=== PATIENT | male | born 1955 | race Caucasian/White ===

== ENCOUNTER → 2016-09-07 | Outpatient (CLI) | payer OTHER ==
--- NOTE | 2016-09-07 14:05 | REP ---
LUMBAR SPINE, SIX VIEWS: HISTORY: Back pain. COMPARISON: 01/14/2010 There is no acute fracture or subluxation. The intervertebral discs are decreased in height consistent with disc degeneration. Osteophytes are present on L1 through L5. There is narrowing of the L4-5 and L5-S1 facet joints. There is scoliosis convex to the left. IMPRESSION: Degenerative change as described above. Signed by Mason Aguero MD 09/07/2016 02:07 P
[2016-09-07 14:07] LABS: ALBUMIN 3.5 GM/DL (3.2-5.2); ALBUMIN/GLOBULIN RATIO 1.13 (1.00-1.93); ALKALINE PHOSPHATASE 109 U/L (45-117); ALT/SGPT 18 U/L (12-78); ANION GAP 4 MEQ/L (8-16); AST/SGOT 12 U/L (15-37); BILIRUBIN,TOTAL 0.2 MG/DL (0.2-1.0); BLOOD UREA NITROGEN 18 MG/DL (7-18); CALCIUM LEVEL 8.7 MG/DL (8.8-10.2); CARBON DIOXIDE LEVEL 30 MEQ/L (21-32); CHLORIDE LEVEL 107 MEQ/L (98-107); CHOLESTEROL LEVEL 185 MG/DL (<200); CREATININE FOR GFR 0.82 MG/DL (0.70-1.30); GLOMERULAR FILTRATION RATE > 60.0 (>49); GLUCOSE, FASTING 74 MG/DL (80-110); POTASSIUM SERUM 4.3 MEQ/L (3.5-5.1); SODIUM LEVEL 141 MEQ/L (136-145); TOTAL PROTEIN 6.6 GM/DL (6.4-8.2); TRIGLYCERIDES LEVEL 102 MG/DL (<150)
== END ==
LOC: M LAB 12:38
PROVIDERS: ATTEND Family Medicine Addiction Medicine
DX: M54.5 Low back pain (principal)

== ENCOUNTER 2017-08-08 06:46 | Emergency (ER) | payer OTHER | END 2017-08-08 09:03 | disposition home or self-care (01) | LOC: M ED 06:46 | DX: S82.391A Other fracture of lower end of right tibia, initial encounter for closed fracture (principal); W17.89XA Other fall from one level to another, initial encounter; Y92.018 Other place in single-family (private) house as the place of occurrence of the external cause; F17.210 Nicotine dependence, cigarettes, uncomplicated | CPT/HCPCS: 73610 ==

== ENCOUNTER 2017-12-12 06:46 | Emergency (ER) | payer MEDICAID, SELFPAY, OTHER ==
[2017-12-12] MEDS: NORCO, ANEXSIA 5/325MG TABLET (HYDROcodone/ACETAMINOPHEN) PO ×2 (07:50→09:10)
[2017-12-12] MEDS: METHOCARBAMOL 750 MG TAB PO (07:50)
[2017-12-12] MEDS: KETOROLAC 60 MG/2 ML VIAL (J1885) IM (07:50)
== END 2017-12-12 09:12 | disposition home or self-care (01) ==
LOC: M ED 06:46
DX: S39.012A Strain of muscle, fascia and tendon of lower back, initial encounter (principal); S22.41XA Multiple fractures of ribs, right side, initial encounter for closed fracture; V39.9XXA Occupant (driver) (passenger) of three-wheeled motor vehicle injured in unspecified traffic accident, initial encounter; Y92.89 Other specified places as the place of occurrence of the external cause; F17.210 Nicotine dependence, cigarettes, uncomplicated; Z87.81 Personal history of (healed) traumatic fracture; Z88.0 Allergy status to penicillin
CPT/HCPCS: J1885

== ENCOUNTER 2020-02-22 13:26 | Emergency (ER) | payer MEDICAID, SELFPAY ==
[~2020-02-22] VITALS: Ht 175.3 cm; Wt 75.8 kg
[~2020-02-22 13:26] MED LIST: HYDR-3715 PO; PRED20TA PO; ROBA500T PO
[2020-02-22] MEDS ORDERED: FAMOTIDINE INJ 20MG/2ML VIAL (S0028 PER 1) IVP ONE (15:30)
[2020-02-22] MEDS ORDERED: methylPREDNISolone 125MG 2ML VIAL IV ONE (15:30)
[2020-02-22] MEDS ORDERED: diphenhydrAMINE 50MG/ML VIAL (J1200) IV ONE (15:30)
[2020-02-22 15:59] LABS: BASO % 0.6 % (0.0-1.0); EOS # 0.1 10^3/uL (0.0-0.5); EOS % 1.2 % (0.0-3.0); HEMATOCRIT 48.2 % (42.0-52.0); LYMPH # 1.6 10^3/uL (1.5-5.0); LYMPH % 23.8 % (24.0-44.0); MEAN CORPUSCULAR HGB CONC 33.2 g/dl (32.0-36.5); MEAN CORPUSCULAR VOLUME 90.3 fl (80.0-96.0); MONO # 0.5 10^3/uL (0.0-0.8); MONO % 7.1 % (0.0-5.0); NEUTROPHILS # 4.4 10^3/uL (1.5-8.5); PLATELET COUNT, AUTOMATED 245 10^3/uL (150-450); RED BLOOD COUNT 5.34 10^6/uL (4.30-6.10); WHITE BLOOD COUNT 6.5 10^3/uL (4.0-10.0)
[2020-02-22 17:23] VITALS: BP 101/62
[2020-02-22] MEDS ORDERED: MEDR4PAK PO (18:00)
== END 2020-02-22 18:16 | disposition home or self-care (01) ==
LOC: M ED 13:26
DX: L50.0 Allergic urticaria (principal); F17.200 Nicotine dependence, unspecified, uncomplicated; Z88.0 Allergy status to penicillin
CPT/HCPCS: 80047; 85025; 96374; 96375; 99284; J1200; J2930

== ENCOUNTER 2023-12-25 14:29 | Emergency (ER) | payer SELFPAY, MEDICAID ==
[~2023-12-25] VITALS: Ht 175.3 cm; Wt 84.8 kg
[~2023-12-25 14:29] MED LIST changes: +MEDR4PAK PO
[2023-12-25 17:18] VITALS: BP 132/76; TEMP 97.5; O2SAT 97
[2024-02-12] MEDS ORDERED: IBUP200C25 PO (15:13)
== END 2023-12-25 17:27 | disposition home or self-care (01) ==
LOC: M ED 14:29
DX: K40.90 Unilateral inguinal hernia, without obstruction or gangrene, not specified as recurrent (principal); F17.210 Nicotine dependence, cigarettes, uncomplicated; Z88.0 Allergy status to penicillin; Z79.899 Other long term (current) drug therapy

== ENCOUNTER 2024-02-20 08:52 | Day surgery (SDC) | payer MEDICAID, MEDICARE ==
[~2024-02-20] VITALS: Ht 175.3 cm; Wt 84.7 kg
[~2024-02-20 08:52] MED LIST changes: +IBUP200C25 PO
[2024-02-20] MEDS ORDERED: LIDOCAINE 2% 100MG/5ML SDV (FOR ANES.) As Ordered ONE (09:14)
[2024-02-20] MEDS ORDERED: propofoL 200 MG/20 ML VIAL As Ordered ONE (09:14)
[2024-02-20] MEDS ORDERED: MIDAZOLAM INJ 2MG/2ML VIAL As Ordered ONE (09:14)
[2024-02-20] MEDS ORDERED: ONDANSETRON 4MG 2ML VIAL As Ordered ONE (09:14)
[2024-02-20] MEDS ORDERED: fentaNYL 100 MCG/2 ML INJECTION As Ordered ONE (09:14)
[2024-02-20] MEDS ORDERED: ROCURONIUM BROMIDE 50MG/5ML VIAL As Ordered ONE (09:14)
[2024-02-20] MEDS ORDERED: LR 1,000 ML IV SCH (09:15)
[2024-02-20] MEDS ORDERED: KETOROLAC 60MG 2ML VIAL As Ordered ONE (09:15)
[2024-02-20] MEDS ORDERED: SUGAMMADEX SODIUM 500 MG/5 ML VIAL (BRIDION) As Ordered ONE (09:15)
[2024-02-20] MEDS: ceFAZolin SOD 2 GM in IV 1 EA IV ONE (09:39)
[2024-02-20] MEDS ORDERED: LABETALOL 100MG/20ML VIAL As Ordered ONE (10:11)
[2024-02-20] MEDS ORDERED: hydrALAZINE 20MG/ML 1ML VIAL As Ordered ONE (10:29)
[2024-02-20] MEDS ORDERED: ACETAMINOPHEN 1000MG 100ML IV BAG As Ordered ONE (10:36)
[2024-02-20] MEDS ORDERED: fentaNYL 100 MCG/2 ML INJECTION IV PRN (11:05)
[2024-02-20] MEDS ORDERED: ONDANSETRON 4MG 2ML VIAL IV PRN (11:05)
[2024-02-20] MEDS: oxyCODONE 5MG TAB PO PRN (11:26)
[2024-02-20] MEDS ORDERED: NORCO, ANEXSIA 5/325MG TABLET (HYDROcodone/ACETAMINOPHEN) PO PRN (12:20)
[2024-02-20 12:27] VITALS: BP 130/80; TEMP 97.4; O2SAT 95
== END 2024-02-20 13:09 | disposition home or self-care (01) ==
LOC: M SDC 08:52
PROVIDERS: ATTEND Surgery
DX: K40.91 Unilateral inguinal hernia, without obstruction or gangrene, recurrent (principal); G47.9 Sleep disorder, unspecified; R06.83 Snoring; Z88.0 Allergy status to penicillin; F17.210 Nicotine dependence, cigarettes, uncomplicated
CPT/HCPCS: 49651; C1781; J0131; J0360; J0665; J0690; J1100; J1885; J1920; J2250; J2405; J3010; S2900